=== PATIENT | female | born 1975 | race Caucasian/White ===

== ENCOUNTER 2017-03-29 04:52 | Day surgery (SDC) | payer MEDICAID ==
[~2017-03-29 04:52] MED LIST: Cyanocobalamin (Vitamin B12) 1,000 MCG/ML SDV IM ONE; Glycopyrrolate 0.2 MG/ML 2 ML SYRINGE IVPUSH ONE; Lactated Ringers 1,000 ML IV ONE; MVI, Adult with Vitamin K 10 ML, Thiamine 200 MG, Chromium/Copper/Mang/Selen/Zn 1 ML in... IV ONE
[2017-03-29] MEDS ORDERED: Dextrose 5%-Lactated Ringers 1,000 ML IV SCH (05:30)
[2017-03-29] MEDS ORDERED: fentaNYL 100 MCG/2 ML SDV ONE (07:05)
[2017-03-29] MEDS ORDERED: Midazolam 1 MG/ML 2 ML SDV ONE (07:05)
[2017-03-29] MEDS ORDERED: Propofol 200 MG/20 ML SDV ONE (07:05)
[2017-03-29] MEDS ORDERED: Glycopyrrolate 0.2 MG/ML 2 ML SYRINGE IVPUSH ONE (07:15)
[2017-03-29 09:05] VITALS: BP 91/50
--- NOTE | 2017-04-08 07:46 | OR ---
DATE OF PROCEDURE: 03/29/2017 PREOPERATIVE DIAGNOSIS: Nausea and frequent emesis, status post Boris-en-Y gastric bypass. POSTOPERATIVE DIAGNOSIS: Nausea and frequent emesis with retained food associated with elongated blind end of the Boris limb and probable stricturing of the origin of the Boris limb off the gastrojejunostomy. OPERATIVE PROCEDURE: Upper GI endoscopy with biopsies of gastric pouch for CLOtest. ANESTHESIA: IV sedation. INDICATION FOR PROCEDURE: This 41-year-old, status post previous Boris-en-Y gastric bypass presenting with some ongoing nausea as well as emesis of often recently ingested food. Transnasal upper GI endoscopy with biopsies and dilation is indicated. Potential risks including bleeding and perforation were discussed, and the patient wishes to proceed. DETAILS OF PROCEDURE: The patient was taken to the operating room and placed in a left lateral decubitus position. IV sedation was administered after which the upper GI endoscope was passed orally through the esophagus and into the gastric pouch into the area of the gastrojejunostomy. The patient was noted to have some retained solid food within the distal esophagus, gastric pouch, and a quite large amount of this within the elongated blind end of the Boris limb. As one passed into the main course of the Boris limb just immediately distal anastomosis, this appears quite angulated narrowed. It appeared to be this is likely somewhat strictured as it was approaching the area of the transverse mesocolon. This appeared to be the primary site of the problem and initially as the scope would be passed through that area, but upon its scoping and pull back, the tissue recoiled. This would indicate this was probably not a dilated bowel situation as the external pressure is unlikely to be fractured by a dilator. Biopsies were obtained from the gastric pouch, sent for CLOtest for H. pylori and the procedure then concluded. The patient was taken to the recovery room in satisfactory condition. I discussed with the patient and . This appeared to be a case where we will need to proceed with revision of the area around the gastrojejunostomy with resection along the lines and probably redo of the entire gastrojejunostomy based on the findings. This may involve a division of the esophageal level esophagogastrectomy versus proximal gastrectomy with Boris-en-Y reconstruction in either case. This will need to be done as an open approach as the original procedure done was retrocolic Boris limb which would make laparoscopic approach quite unsafe. The plan will be to proceed with this surgical intervention next Saturday. Aakash Brothers MD /[id number]
== END 2017-03-29 09:15 | disposition home or self-care (01) ==
LOC: JP.SDS 04:52
PROVIDERS: ATTEND Surgery
DX: T18.128A Food in esophagus causing other injury, initial encounter (principal); Z98.84 Bariatric surgery status; Z88.0 Allergy status to penicillin; Z88.1 Allergy status to other antibiotic agents; Z88.2 Allergy status to sulfonamides; Z88.8 Allergy status to other drugs, medicaments and biological substances
CPT/HCPCS: 43239; 87081; J2250; J2704; J3010; J7042

== ENCOUNTER 2017-04-02 08:00 | Inpatient (IN) | payer MEDICAID ==
[2017-04-02] MEDS ORDERED: Acetaminophen 500 MG Tab PO ONE (09:00)
[2017-04-02] MEDS ORDERED: Scopolamine 1.5 MG Transdermal Patch TRDERM SCH (09:00)
[2017-04-02] MEDS ORDERED: Gabapentin 300 MG Cap PO ONE (09:00)
[2017-04-02] MEDS ORDERED: Celecoxib 200 MG Cap PO ONE (09:00)
[2017-04-02] MEDS ORDERED: Albuterol/Ipratropium 3.0-0.5 MG/3 ML Neb Soln NEB ONE (09:00)
[2017-04-02] MEDS ORDERED: Dextrose 5%-Lactated Ringers 1,000 ML IV SCH ×2 (09:00→15:45)
[2017-04-02] MEDS ORDERED: Ondansetron 4 MG/2 ML SDV ONE (09:48)
[2017-04-02] MEDS ORDERED: Dexamethasone 4 MG/ML SDV ONE (09:48)
[2017-04-02] MEDS ORDERED: Succinylcholine/Normal Saline 200 MG/10 ML Syringe ONE (09:48)
[2017-04-02] MEDS ORDERED: Propofol 200 MG/20 ML SDV ONE (09:48)
[2017-04-02] MEDS ORDERED: Neostigmine Methylsulfate 1 MG/ML 5 ML Syringe ONE (09:48)
[2017-04-02] MEDS ORDERED: fentaNYL 250 MCG/5 ML SDV ONE (09:48)
[2017-04-02] MEDS ORDERED: Rocuronium 50 MG/5 ML Vial ONE ×2 (09:48→12:18)
[2017-04-02] MEDS ORDERED: Lidocaine 2% 100 MG/5 ML Syringe IVPUSH ONE (10:30)
[2017-04-02] MEDS ORDERED: Ropivacaine 45 ML, Dexamethasone 8 MG, EPINEPHrine 0.4 MG, Sodium Chloride 0.9% 32.6 ML NERVRT ONE ×4 (10:30)
[2017-04-02] MEDS ORDERED: Ketamine 500 MG/5 ML MDV IV SCH (10:30)
[2017-04-02] MEDS ORDERED: Doxycycline 100 MG Vial ONE ×2 (12:08→12:10)
[2017-04-02] MEDS: Clindamycin Phosphate 900 MG in Sodium Chloride 0.9% 100 ML IV ONE ×2 (12:13→17:18)
[2017-04-02] MEDS ORDERED: fentaNYL 100 MCG/2 ML SDV ONE (14:38)
[2017-04-02] MEDS ORDERED: HYDROmorphone/Normal Saline 15 MG/30 ML PCA IV PRN (15:04)
[2017-04-02] MEDS ORDERED: Naloxone 0.4 MG/ML SDV IVPUSH PRN (15:04)
[2017-04-02] MEDS ORDERED: Naloxone 0.4 MG/ML SDV ONE (15:11)
[2017-04-02] MEDS ORDERED: Doxycycline 100 MG in Sodium Chloride 0.9% 100 ML IV ONE (15:20)
[2017-04-02] MEDS ORDERED: Metoclopramide 10 MG/2 ML SDV IV PRN (16:50)
[2017-04-02] MEDS ORDERED: hydrOXYzine HCl 50 MG/ML SDV IM PRN (17:00)
[2017-04-02] MEDS ORDERED: Labetalol 20 MG/4 ML Syringe IVPUSH PRN (17:00)
[2017-04-02] MEDS ORDERED: Ondansetron 4 MG/2 ML SDV IVPUSH PRN (17:00)
[2017-04-02] MEDS ORDERED: SCOPOLAMINE PATCH ASK TOP SCH (17:00)
[2017-04-02] MEDS: Lidocaine 0.4%/D5W 2 GM/500 ML BAG IV SCH (17:19)
[2017-04-02] MEDS: Acetaminophen Soln 650 MG/20.3 ML UD Cup PO SCH (17:20)
[2017-04-02] MEDS: MVI, Adult with Vitamin K 10 ML, Thiamine 200 MG, Chromium/Copper/Mang/Selen/Zn 1 ML in... IV SCH ×4 (17:39)
[2017-04-02] MEDS: Pantoprazole 40 MG Vial IVPUSH SCH (17:39)
[2017-04-02] MEDS ORDERED: LORazepam 1 MG Tab PO PRN (19:32)
[2017-04-02] MEDS: Heparin Sodium 5,000 Units/ML Vial SUBCUT SCH (21:09)
[2017-04-02] MEDS: Gabapentin 300 MG Cap PO SCH (21:10)
[2017-04-03] MEDS: Acetaminophen Soln 650 MG/20.3 ML UD Cup PO SCH ×4 (00:06→16:17)
[2017-04-03] MEDS: Doxycycline 100 MG in Sodium Chloride 0.9% 100 ML IV SCH ×2 (03:25→15:15)
[2017-04-03] MEDS: Lidocaine 0.4%/D5W 2 GM/500 ML BAG IV SCH (03:26)
[2017-04-03] MEDS ORDERED: Iohexol 647 MG/ML 50 ML SDV PO STA (04:17)
[2017-04-03] MEDS ORDERED: Dextrose 5%-Lactated Ringers 1,000 ML IV SCH (07:24)
[2017-04-03] MEDS ORDERED: LORazepam 1 MG Tab PO PRN (07:24)
[2017-04-03] MEDS ORDERED: Albuterol 0.083% 2.5 MG/3 ML Neb Soln INH PRN (07:24)
[2017-04-03] MEDS ORDERED: EPINEPHrine 1:10,000 1 MG/10 ML Syringe IM SCH (07:30)
[2017-04-03] MEDS: Celecoxib 200 MG Cap PO SCH (07:35)
[2017-04-03] MEDS: Heparin Sodium 5,000 Units/ML Vial SUBCUT SCH ×2 (07:35→20:40)
--- NOTE | 2017-04-03 08:24 | PN ---
DATE OF SERVICE: 04/03/2017 SUBJECTIVE: Kiki is postop day #1. She had some confusion during the night. Lidocaine was discontinued. Her vital signs have been stable. Pain has been controlled. REVIEW OF SYSTEMS: Remainder of review of systems negative for any pertinent positives and negatives. OBJECTIVE: GENERAL: Kiki Sam is a 41-year-old female. She appears to be alert this morning and comfortable, sitting up in bed. VITAL SIGNS: TPR 97.8, 83, 20, blood pressure 110/55. HEENT: Negative. NECK: Supple. HEART: Regular rate and rhythm. LUNGS: Clear. ABDOMEN: Dressings, dry and intact. Abdominal binder is on. EXTREMITIES: Without peripheral edema. ASSESSMENT: Exploratory laparotomy with lysis of extensive adhesions, and esophagogastrectomy with Boris-en-Y at the esophageal junction, small-bowel resection, and resection of mesenteric peritoneal nodule for partial small bowel obstruction adjacent to the gastrojejunostomy with inflammation requiring resection at the distal esophageal junction with Boris-en-Y, AJ small-bowel resection, and resection of mesenteric peritoneal nodule. Date of surgery 04/02/2017. PLAN: 1. Step-2 gastric bypass diet without cereal. Decrease IV to 100 mL per hour. 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 Dilaudid 2 mg one to two every 4 hours p.r.n. pain. Dressing off. May shower. 2. Good pulmonary toilet. 3. We will evaluate p.r.n. or in a.m. Halle Donahue PA-C /[id number]
[2017-04-03] MEDS: Docusate Sodium 100 MG Cap PO SCH (08:40)
[2017-04-03] MEDS: Cyclobenzaprine 10 MG Tab PO SCH ×3 (08:40→20:41)
[2017-04-03] MEDS: Gabapentin 300 MG Cap PO SCH ×3 (08:41→20:41)
[2017-04-03] MEDS: SCOPOLAMINE PATCH CHECK TOP SCH (08:41)
[2017-04-03] MEDS: Oxybutynin 5 MG Tab PO SCH ×3 (08:42→20:41)
[2017-04-03] MEDS: Cetirizine 10 MG Tab PO SCH (08:43)
[2017-04-03] MEDS: Clopidogrel 75 MG Tab PO SCH (08:43)
[2017-04-03] MEDS: Pindolol 10 MG Tab PO SCH ×2 (08:45→20:42)
[2017-04-03] MEDS: Topiramate 100 MG Tab PO SCH ×3 (08:52→20:44)
[2017-04-03] MEDS: Montelukast 10 MG Tab PO SCH (08:52)
[2017-04-03] MEDS: Prazosin 1 MG Cap PO SCH (08:52)
[2017-04-03] MEDS: HYDROmorphone 2 MG Tab PO PRN ×3 (10:03→18:54)
--- NOTE | 2017-04-03 12:23 | CR ---
Contrast within small bowel loops. No gross evidence for leakage.
[2017-04-03] MEDS: diphenhydrAMINE 50 MG/ML SDV IV PRN ×2 (16:11→20:58)
[2017-04-03] MEDS: MVI, Adult with Vitamin K 10 ML, Thiamine 200 MG, Chromium/Copper/Mang/Selen/Zn 1 ML in... IV SCH ×4 (16:16)
[2017-04-03] MEDS: Pantoprazole 40 MG Vial IVPUSH SCH (17:31)
[2017-04-03] MEDS: Doxepin 25 MG Cap PO SCH (20:44)
[2017-04-03] MEDS ORDERED: Tamsulosin 0.4 MG Cap.ER PO ONE (21:00)
[2017-04-04] MEDS: Acetaminophen Soln 650 MG/20.3 ML UD Cup PO SCH ×6 (00:22→22:43)
[2017-04-04] MEDS: HYDROmorphone 2 MG Tab PO PRN ×3 (04:22→20:16)
[2017-04-04] MEDS: Celecoxib 200 MG Cap PO SCH (07:38)
[2017-04-04] MEDS: Heparin Sodium 5,000 Units/ML Vial SUBCUT SCH ×2 (07:39→20:30)
--- NOTE | 2017-04-04 08:01 | PN ---
DATE OF SERVICE: 04/04/2017 SUBJECTIVE: Kiki has had difficulty urinating. Her Morlaes was put back in. Last night, she had 1580 out. Her total oral intake was 2500. REBECCA drains have put out 5 and 40 mL respectively. Kiki has difficulty waking up during the night. Nursing staff and family confirms that once she takes her medications at night, she is very difficult to wake up. Kiki states her doctor is aware of this and she does not want to change her medications. Pain is controlled, activity is good. REVIEW OF SYSTEMS: Remainder of review of systems is negative for any pertinent positives and negatives. OBJECTIVE: GENERAL: Kiki Sam is a 41-year-old female. She is quite sleepy. Speech is slightly slurred. VITAL SIGNS: TPR is 96.7, 76, 16, blood pressure 90/51. HEENT: Negative. NECK: Supple. HEART: Regular rate and rhythm. LUNGS: Clear. ABDOMEN: Aquacel dressing is on. There are 2 REBECCA drains and they have drained 5 and 40 mL of a light red drainage respectively. EXTREMITIES: SCDs are on and no peripheral edema. ASSESSMENT: Exploratory laparotomy with lysis of extensive adhesions and esophagogastrectomy with Boris-en-Y reconstruction at the esophageal junction, small bowel resection, and resection of mesenteric peritoneal nodule for partial small bowel obstruction adjacent to the gastrojejunostomy with inflammation requiring resection of the distal esophageal junction with Boris-en-Y small bowel resection, and resection of mesenteric peritoneal nodule. Date of surgery 04/02/2017. PLAN: 1. Hospitalist referral put in for Dr. Toan Carson to evaluate. Psychiatric medication due to extreme sleepiness/sedation at bedtime. 2. Flomax 0.4 mg now, then Flomax 0.4 b.i.d. p.o. 3. Good pulmonary toilet encouraged. 4. To remove Morales catheter at 11:30 a.m. today. 5. We will evaluate p.r.n. or in a.m. Halle Donahue PA-C /[id number]
[2017-04-04] MEDS: Pindolol 10 MG Tab PO SCH ×2 (08:21→20:33)
[2017-04-04] MEDS: Oxybutynin 5 MG Tab PO SCH ×3 (08:22→20:32)
[2017-04-04] MEDS: Docusate Sodium 100 MG Cap PO SCH (08:22)
[2017-04-04] MEDS: Cetirizine 10 MG Tab PO SCH (08:22)
[2017-04-04] MEDS: Cyclobenzaprine 10 MG Tab PO SCH ×3 (08:22→20:32)
[2017-04-04] MEDS: Montelukast 10 MG Tab PO SCH (08:22)
[2017-04-04] MEDS: Prazosin 1 MG Cap PO SCH (08:22)
[2017-04-04] MEDS: Gabapentin 300 MG Cap PO SCH ×3 (08:22→20:32)
[2017-04-04] MEDS: Clopidogrel 75 MG Tab PO SCH (08:22)
[2017-04-04] MEDS: SCOPOLAMINE PATCH CHECK TOP SCH (08:23)
[2017-04-04] MEDS: Tamsulosin 0.4 MG Cap.ER PO SCH ×2 (08:26→17:02)
[2017-04-04] MEDS ORDERED: Tamsulosin 0.4 MG Cap.ER PO SCH (09:00)
[2017-04-04] MEDS ORDERED: Cyanocobalamin (Vitamin B12) 1,000 MCG/ML SDV IM ONE (09:00)
[2017-04-04] MEDS: Vilazodone 20 MG Tab PO SCH (10:08)
--- NOTE | 2017-04-04 16:50 | PCM.CONS ---
H&P History of Present Illness - General Date of Service: 04/04/17 Admit Problem/Dx: Admission Diagnosis/Problem Admission Diagnosis/Problem Small bowel obstruction Source of Information: Patient, Provider, RN Notes Reviewed History Limitations: Reports: No Limitations - History of Present Illness Initial Comments - Free Text/Narative: This patient is a 41-year-old woman who I been asked to see by Dr. Brothers for further suggestions concerning evaluation and management of psychiatric medications. She was hospitalized at this facility for management of partial small bowel obstruction. She did receive anesthesia and was noted to take significant period of time to recover from the anesthesia. She takes several psychiatric medications at night and reports that she's been taking his medications over the past 6 months. She denies any new medications or changes in dosing recently. Family has noted that she sleeps very hard for several hours after taking the medication even to the point where she's very difficult to wake up. She feels that her psychiatric illnesses well controlled on current medical therapy. While monitored in the hospital she is been hemodynamically stable at night with adequate oxygenation no evidence of significant respiratory compromise. Abdomen Pain Score (Numeric/FACES): 5 - Related Data Allergies/Adverse Reactions: Allergies Allergy/AdvReac Type Severity Reaction Status Date / Time aspirin Allergy Cannot Verified 04/02/17 09:18 Remember cefazolin Allergy Cannot Verified 04/02/17 09:18 Remember cefoxitin Allergy Cannot Verified 04/02/17 09:18 Remember ciprofloxacin Allergy Cannot Verified 04/02/17 09:18 Remember diphtheria, pertussis, Allergy Cannot Verified 04/02/17 09:18 tetanus vacc Remember doxycycline Allergy Hives Verified 04/03/17 17:30 levofloxacin [From Levaquin] Allergy Cannot Verified 04/02/17 09:18 Remember Penicillins Allergy Cannot Verified 04/02/17 09:18 Remember propoxyphene Allergy Cannot Verified 04/02/17 09:18 Remember Sulfa (Sulfonamide Allergy Cannot Verified 04/02/17 09:18 Antibiotics) Remember sulfamethoxazole Allergy Cannot Verified 04/02/17 09:18 Remember trimethoprim Allergy Cannot Verified 03/29/17 05:41 Remember Home Medications: Home Meds Albuterol [IJD: Ventolin HFA] 2 puff INH Q4H PRN 03/07/17 [History] Albuterol [Proventil Neb Soln] 2.5 mg INH Q4H PRN 03/07/17 [History] Albuterol/Ipratropium [DuoNeb 3.0-0.5 MG/3 ML] 3 ml INH Q4H PRN 03/07/17 [ History] Calcium Carbonate/Vitamin D3 [Calcium 500 + Vit D Caplet] 1 tab PO DAILY [History] Cholecalciferol (Vitamin D3) [Vitamin D3] 1,000 units PO DAILY 03/07/17 [History ] Cyclobenzaprine HCl 10 mg PO TID 03/07/17 [History] Doxepin HCl 150 mg PO BEDTIME 03/07/17 [History] Ferrous Gluconate 324 mg PO DAILY 03/07/17 [History] Gabapentin [Neurontin] 800 mg PO TID 03/07/17 [History] Magnesium Oxide 1 tab PO TID 03/07/17 [History] Montelukast Sodium [Singulair] 10 mg PO DAILY 03/07/17 [History] Pantoprazole Sodium [Protonix] 40 mg PO DAILY 03/07/17 [History] Pindolol 5 mg PO BEDTIME 03/07/17 [History] Pindolol 10 mg PO DAILY 03/07/17 [History] Prazosin [Minpress] 1 mg PO DAILY 03/07/17 [History] QUEtiapine Fumarate [Seroquel] 600 mg PO DAILY 03/07/17 [History] Topiramate [Topamax] 400 mg PO DAILY 03/07/17 [History] Vilazodone [Viibryd] 60 mg PO DAILY 03/07/17 [History] Cetirizine [ZyrTEC] 10 mg PO DAILY 03/27/17 [History] Cholecalciferol (Vitamin D3) [Vitamin D] 50,000 units PO .M.W.F 03/27/17 [ History] Clopidogrel [Plavix] 75 mg PO DAILY 03/27/17 [History] EPINEPHrine [Epinephrine] 1 dose IM ASDIRECTED 03/27/17 [History] Multivitamin with Minerals [Multiple Vitamin] 1 tab PO DAILY 03/27/17 [History] Oxybutynin 5 mg PO TID 03/27/17 [History] Ranitidine [Zantac] 150 mg PO BID 03/27/17 [History] SUMAtriptan 100 mg PO DAILY PRN 03/27/17 [History] Sucralfate 10 ml PO QID 03/27/17 [History] diphenhydrAMINE [Benadryl] 25 mg PO ASDIRECTED PRN 03/27/17 [History] hydrOXYzine HCl [hydrOXYzine] 25 mg PO TID PRN 03/27/17 [History] Cyanocobalamin (Vitamin B-12) [Vitamin B-12] 1,000 mcg PO .MONTHLY 03/29/17 [ History] Cyanocobalamin (Vitamin B-12) [Vitamin B-12] 1,000 mcg SL DAILY 03/29/17 [ History] Docusate Sodium [Colace] 100 mg PO DAILY 03/29/17 [History] Hydrocodone/Acetaminophen [[place] 7.5-325 Tablet] 1 - 2 tab PO Q4H PRN 03/29/17 [ History] LORazepam 1 mg PO Q6H PRN 03/29/17 [History] Multivits,Ca,Minerals/Iron/FA [Women's Daily Formula Caplet] 1 tab PO DAILY [History] Past Medical History HEENT History: Reports: Impaired Vision Other HEENT History: wears glasses Cardiovascular History: Reports: Other (See Below) Other Cardiovascular History: "vagal nerve disease" Respiratory History: Reports: Asthma Genitourinary History: Reports: Renal Calculus 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: Musculoskeletal History: Reports: Arthritis, Back Pain, Chronic Neurological History: Reports: Migraines Psychiatric History: Reports: Anxiety, Depression Endocrine/Metabolic History: Reports: Obesity/BMI 30+ Hematologic History: Reports: Blood Transfusion(s) - Infectious Disease History Infectious Disease History: Reports: Chicken Pox - Past Surgical History HEENT Surgical History: Reports: Oral Surgery Other HEENT Surgeries/Procedures: all teeth pulled Cardiovascular Surgical History: Reports: None GI Surgical History: Reports: Appendectomy, Bariatric Procedure, Cholecystectomy , EGD, Small Bowel Female Surgical History: Reports: Section Neurological Surgical History: Reports: Spinal Fusion Social & Family History - Family History Family Medical History: Noncontributory - Tobacco Use Smoking Status *Q: Former Smoker Years of Tobacco use: 20 Used Tobacco, but Quit: Yes Month Tobacco Last Used: years Second Hand Smoke Exposure: No - Caffeine Use Caffeine Use: Reports: Coffee, Tea - Recreational Drug Use Recreational Drug Use: No H&P Review of Systems - Review of Systems: Review Of Systems: See Below Pulmonary: Reports: No Symptoms Cardiovascular: Reports: No Symptoms Gastrointestinal: Reports: Abdominal Pain. Denies: Anorexia, Difficulty Swallowing, Distension, Nausea, Vomiting Genitourinary: Reports: No Symptoms Psychiatric: Reports: No Symptoms Exam - Exam Exam: See Below - Vital Signs Vital Signs: Last Vital Signs Temp 96.8 F 04/04/17 14:35 Pulse 77 04/04/17 14:56 Resp 16 04/04/17 14:56 BP 91/48 L 04/04/17 14:56 Pulse Ox 96 04/04/17 14:56 Weight: 194 lb - Exam Neck: Supple, Trachea Midline, +2 Carotid Pulse wo Bruit Lungs: Clear to Auscultation, Normal Respiratory Effort Cardiovascular: Regular Rate, Regular Rhythm, Normal S1, Normal S2. No: Systolic Murmur, Diastolic Murmur Abdomen: Soft, Tenderness. No: Organomegaly, Peritoneal Signs, Distention, Guarding, Rigidity Extremities: 3, Normal Inspection, 10 - Patient Data Result Diagrams: 04/02/17 08:25 04/02/17 08:25 Consult PN Assessment/Plan Problem List Initiated/Reviewed/Updated: Yes Plan: ASSESSMENT AND RECOMMENDATIONS PSYCHIATRIC MEDICATIONS-concerned about medications and potential oversedation. Patient has been on these medications now for some time and reports that her mental illness is well controlled with current therapy. She does sleep very hard after taking the medications but during hospitalization is been noted to be hemodynamically stable with no evidence of significant respiratory compromise. -No changes in medication at this time -Out Patient followup with her mental health provider Requesting Provider: TULIO Date Consult Requested: 04/04/17 Reason for Consult: Review psychiatric medication Patient History Reviewed: Yes
[2017-04-04] MEDS: Doxepin 25 MG Cap PO SCH (20:33)
[2017-04-04] MEDS: Topiramate 100 MG Tab PO SCH (20:34)
[2017-04-05] MEDS: Acetaminophen Soln 650 MG/20.3 ML UD Cup PO SCH (06:01)
[2017-04-05 07:15] VITALS: BP 91/52
[2017-04-05] MEDS: Tamsulosin 0.4 MG Cap.ER PO SCH (07:51)
[2017-04-05] MEDS: Celecoxib 200 MG Cap PO SCH (07:52)
[2017-04-05] MEDS: SCOPOLAMINE PATCH CHECK TOP SCH (08:18)
[2017-04-05] MEDS: Pindolol 10 MG Tab PO SCH (08:26)
[2017-04-05] MEDS: Vilazodone 20 MG Tab PO SCH (08:26)
[2017-04-05] MEDS: Heparin Sodium 5,000 Units/ML Vial SUBCUT SCH (08:26)
[2017-04-05] MEDS: Docusate Sodium 100 MG Cap PO SCH (08:28)
[2017-04-05] MEDS: Prazosin 1 MG Cap PO SCH ×2 (08:28→08:31)
[2017-04-05] MEDS: Cyclobenzaprine 10 MG Tab PO SCH (08:28)
[2017-04-05] MEDS: Oxybutynin 5 MG Tab PO SCH (08:28)
[2017-04-05] MEDS: Gabapentin 300 MG Cap PO SCH (08:28)
[2017-04-05] MEDS: Cetirizine 10 MG Tab PO SCH (08:29)
[2017-04-05] MEDS: Clopidogrel 75 MG Tab PO SCH (08:29)
[2017-04-05] MEDS: Montelukast 10 MG Tab PO SCH (08:29)
--- NOTE | 2017-04-05 15:11 | DISCH ---
ADMISSION DIAGNOSES: 1. Partial small bowel obstruction. 2. Boris-en-Y gastric bypass surgery. 3. B12 deficiency. 4. Malabsorption.. 5. Vitamin D deficiency. 6. Dysphagia.. 7. Epigastric pain. 8. Bipolar I disorder, uncomplicated. 9. Asthma. 10.Intractable migraine with status migrainosus, unspecified type. 11.Depression. DISCHARGE DIAGNOSES: 1. Exploratory laparotomy with lysis of extensive adhesions and esophagogastrectomy with Boris-en-Y reconstruction at the esophageal junction. 2. Small bowel resection and resection of the mesenteric peritoneal nodule for partial small bowel obstruction adjacent to the gastrojejunostomy with inflammation requiring resection of the distal esophageal junction with Boris-en-Y and small bowel resection and resection of her nodule, date of surgery 04/02/2017. HISTORY: Kiki Sam is a 41-year-old female with postprandial abdominal pain and bloating with weight regain. After preoperative evaluation and discussion of possible risks and possible complications, she wished to proceed with surgical procedure. HOSPITAL COURSE: Kiki had her surgery on 04/02/2017. She had no operative complications. On postop day #1, her upper GI was normal and she was started on a step 2 gastric bypass diet without cereal. She received dietary education. Her VELVET STEAMER was changed to oral pain medication. She had no other complications with the exception of some urinary retention. On postop day #1, her Morales catheter was removed and she was voiding without difficulty since that time. Internal Medicine consult was obtained to evaluate her psychiatric medications. Kiki was very sleepy, she is unable to be woke up after she takes her bedtime medications. Nursing staff, mom, and were quite concerned. Dr. Toan Carson saw the patient. He did not adjust her psych medication but referred her to see Dr. Jerome at [facility] to evaluate these medications. On postop day #3, Kiki was educated, she verbalized her understanding, and she was ready to be discharged to home. PHYSICAL EXAMINATION: GENERAL: Kiki Sam is a 41-year-old female. VITAL SIGNS: Height 5 feet 3 inches, weight is 194 pounds, and BMI 34.4. TPR is 98.2, 78, and 18. Blood pressure 91/52. HEENT: Negative. NECK: Supple. HEART: Regular rate and rhythm. LUNGS: Clear. ABDOMEN: Aquacel dressing was removed with chata in place. She has 2 REBECCA drains. The peripheral REBECCA drain is removed and a 4 x 4 was placed over the previous site. We will leave the midline REBECCA drain. EXTREMITIES: Without peripheral edema. DISPOSITION: Discharged to home. CONDITION: Stable and improving. FOLLOWUP APPOINTMENT: Halle Donahue PA-C, on 04/12/2017. HOME MEDICATIONS: 1. Dilaudid 2 mg 1 to 2 every 4 hours p.r.n. pain #30, she is not to take that with her hydrocodone. 2. Celebrex 200 mg oral daily for 14 days and stop. 3. Multivitamin chewable twice daily. 4. She is to resume taking her albuterol inhaler 2 puffs every 4 hours, Proventil nebulizer solution as directed, and her duo nebs as directed p.r.n. 5. Zyrtec 10 mg oral daily. 6. Vitamin B12 1000 mcg sublingual daily. She can continue her B12 1000 IM monthly. 7. Cyclobenzaprine 10 mg oral 3 times a day. 8. Colace 100 mg oral daily. 9. Doxepin 150 mg oral at bedtime. 10.Epinephrine 1 dose intramuscular as needed. 11.Neurontin 800 mg 3 times a day. 12.Lorazepam 1 mg every 6 hours p.r.n. anxiety. 13.Singulair 10 mg oral daily. 14.Oxybutynin 5 mg oral 3 times a day. 15.Protonix 40 mg oral daily. 16.Pindolol 5 mg oral twice daily. 17.Minipress 1 mg oral daily. 18.Seroquel 600 mg oral at bedtime. 19.Zantac 150 mg oral twice daily. 20.Sumatriptan 100 mg oral daily. 21.Sucralfate 10 mL oral 4 times a day. 22.Topamax 400 mg oral daily. 23.Viibryd 60 mg oral daily. 24.Benadryl 25 mg as directed. 25.Hydroxyzine 25 mg oral 3 times a day. 26.She is to stop all of her vitamins with exception of B12 and multivitamin. DIET: After discharge, step-2 gastric bypass diet without cereals. Drink 8 to 10 glasses of water a day. ACTIVITY: No lifting greater than 10 pounds for 2 weeks[address]riving, do not drive on pain medication. May shower. Notify provider of fever, increased pain, nausea, or vomiting. Keep the site clean and dry. Use incentive spirometer 10 times every hour while awake.
--- NOTE | 2017-04-15 12:40 | OR ---
DATE OF PROCEDURE: 04/02/2017 PREOPERATIVE DIAGNOSES: Partial obstruction adjacent to the gastrojejunostomy. The patient has a previous gastric bypass. POSTOPERATIVE DIAGNOSES: 1. Partial small bowel obstruction adjacent to the gastrojejunostomy with marked inflammation, requiring resection at the level of distal esophagus with Boris-en-Y esophagojejunostomy. 2. Foreshortened small bowel requiring additional small bowel resection to facilitate the GI tract reconstruction. 3. Mesenteric peritoneal nodule. OPERATIVE PROCEDURE: Exploratory laparotomy with bowel with: 1. Lysis of adhesions and a. Esophagogastrectomy with Boris-en-Y esophagojejunostomy (61835). b. Small bowel resection (31782). c. Resection of the mesenteric peritoneal nodule (41166). ANESTHESIA: General. ASSOCIATE PRINCIPAL: Belkys Adame PA-C. INDICATION FOR PROCEDURE: This is a 41-year-old, status post previous Boris-en-Y gastric bypass which was performed with a retrocolic approach. She now presents with marked problems with regurgitation of food and dysphagia and was noted to have an area of a high- grade partial obstruction at the level of the small bowel adjacent to the gastrojejunostomy. The plan is to proceed with a revision of this area, this will need to be done with an open approach. Potential risks of the procedure including bleeding, infection, injury to underlying viscera, leaks from various GI tract closures and such were all reviewed, and the patient wishes to proceed. DETAILS OF THE PROCEDURE: The patient was taken to the operating room and placed in a supine position. After general endotracheal anesthesia was induced, a bilateral transversus abdominis plane blocks were placed with ultrasound guidance. Following this, the abdomen was prepped and draped, and a Morales catheter was inserted. The previous upper midline incision was then reused and carried down through the skin and subcutaneous tissue, extensive adhesions were undertaken. Once these were freed up, the patient was noted to have a marked inflammatory response around the gastrojejunostomy. The only clean plane of the dissection appeared to be above this in the level of the distal esophagus. This was then divided and the underlying esophagogastric gastrectomy was then completed with vascular and mesenteric loads dividing the vascular attachments to the specimen, which consisted of the distal esophagus, and previous gastric pouch along with the Boris limb. The Boris limb was divided with a juarez load and that specimen was then delivered from the field. The Boris limb was fairly foreshortened, and to facilitate mobilization of this up to the divided esophagus, a segmental small-bowel resection and a portion of the Boris limb was accomplished. That segment of small bowel was divided proximally, distally, and the underlying mesentery and all were divided with the GI tract chata. The small bowel anatomy was then reconstructed with 2 internal firings of the MARJORIE juarez load, common opening was closed transversely with the purple load and the angles of the anastomosis and mesenteric defect approximated with some 3-0 Vicryl stitch and fibrin sealant. During the course of dissection, the patient was noted to have a roughly 6 mm peritoneal nodule of uncertain nature, which was excised and delivered from the field. At this point, the Boris limb came up to the divided esophagus satisfactory and over 25 mm EEA stapler was attached to a [place] sump tube and brought down through the mouth and taken out through the end of the esophagus allowing the anvil to be able to be brought down through the esophagus as well. The divided end of the Boris limb was then opened and main body EEA stapler was passed several centimeters in the lumen of small bowel brought up the anvil and united with it, thus creating the esophagojejunostomy. The Boris limb was at this time noted to be around 120 cm. The esophagojejunostomy was then reinforced with 3-0 Vicryl seromuscular stitch along with fibrin sealant. No problems were noted. Two Ousmane-Monet drains were then placed through stab wounds lateral to the incision and the incision was then closed with some 2-0 Vicryl stitch at the fascia level. The subcutaneous tissue was then drained with a 10 round Ousmane-Monet drain and the skin closed with chata. Dressing was applied. The patient was taken to the recovery room in satisfactory condition. There were no other complications noted. Aakash Brothers MD /[id number]
== END 2017-04-05 09:35 | disposition home or self-care (01) | DRG 327 ==
LOC: JP.MS 08:00 → JP.SDS 08:00 → EDSTATUS 09:15 → JP.2SS 16:34
PROVIDERS: ADMIT Surgery; ATTEND Surgery
PROC: 0DNW0ZZ Release Peritoneum, Open Approach (ICD-10-PCS; principal; 2017-04-02)
PROC: 0DB80ZX Excision of Small Intestine, Open Approach, Diagnostic (ICD-10-PCS; principal; 2017-04-02)
PROC: 0DB60ZZ Excision of Stomach, Open Approach (ICD-10-PCS; principal; 2017-04-02)
PROC: 3E0T3BZ Introduction of Anesthetic Agent into Peripheral Nerves and Plexi, Percutaneous Approach (ICD-10-PCS; principal; 2017-04-02)
PROC: 0DB30ZZ Excision of Lower Esophagus, Open Approach (ICD-10-PCS; principal; 2017-04-02)
PROC: 0DBW0ZZ Excision of Peritoneum, Open Approach (ICD-10-PCS; principal; 2017-04-02)
DX: K56.5 Intestinal adhesions [bands] with obstruction (postinfection) (principal); K91.2 Postsurgical malabsorption, not elsewhere classified; K66.8 Other specified disorders of peritoneum; E53.8 Deficiency of other specified B group vitamins; Z98.84 Bariatric surgery status; Z98.0 Intestinal bypass and anastomosis status; E55.9 Vitamin D deficiency, unspecified; R13.10 Dysphagia, unspecified; R10.13 Epigastric pain; F31.9 Bipolar disorder, unspecified; J45.909 Unspecified asthma, uncomplicated; G89.29 Other chronic pain; G43.911 Migraine, unspecified, intractable, with status migrainosus; Z98.1 Arthrodesis status; M54.9 Dorsalgia, unspecified; M19.90 Unspecified osteoarthritis, unspecified site; H54.7 Unspecified visual loss; F41.9 Anxiety disorder, unspecified; Z87.891 Personal history of nicotine dependence; Z88.6 Allergy status to analgesic agent; Z88.1 Allergy status to other antibiotic agents; Z88.0 Allergy status to penicillin; Z88.2 Allergy status to sulfonamides; Z88.7 Allergy status to serum and vaccine; Z88.8 Allergy status to other drugs, medicaments and biological substances; R33.8 Other retention of urine; K20.9 Esophagitis, unspecified; K52.9 Noninfective gastroenteritis and colitis, unspecified
CPT/HCPCS: 36415; 74240; 74240-26; 80053; 83735; 84100; 85027; 88304; 88307; 88341; 88342; A9270-GY; C9113; J0171; J1100; J1170; J1200; J1644; J2001; J2310; J2405; J2704; J2795; J3010; J3410; J3411; J3420; J7030; J7042; J7050; J7620; Q9967; S0077

== ENCOUNTER 2017-05-03 07:51 | Day surgery (SDC) | payer MEDICAID ==
[2017-05-03] MEDS ORDERED: Lactated Ringers 1,000 ML IV SCH (08:30)
[2017-05-03] MEDS ORDERED: Midazolam 1 MG/ML 2 ML SDV ONE (09:14)
[2017-05-03] MEDS ORDERED: Propofol 200 MG/20 ML SDV ONE (09:14)
[2017-05-03] MEDS ORDERED: fentaNYL 100 MCG/2 ML SDV ONE (09:14)
[2017-05-03] MEDS ORDERED: Cyanocobalamin (Vitamin B12) 1,000 MCG/ML SDV IM ONE (09:30)
[2017-05-03] MEDS ORDERED: MVI, Adult with Vitamin K 10 ML, Thiamine 200 MG, Chromium/Copper/Mang/Selen/Zn 1 ML in... IV ONE ×4 (10:30)
[2017-05-03 10:49] VITALS: BP 97/55
--- NOTE | 2017-05-03 13:03 | OR ---
DATE OF PROCEDURE: 05/03/2017 PROCEDURE: EGD with dilation. FINDINGS: Approximately 50% narrowing of the gastrojejunal anastomosis (dilated using a 36- Turkish balloon). COMPLICATIONS: None. INDUSTRIAL MAINTENANCE TECHNICIAN: None. ANESTHESIA: MAC. INDICATIONS: A pleasant 41-year-old female, who had a Boris-en-Y. She states approximately one month ago and this was a revision. She has dysphagia. Risks, benefits, alternatives, limitations including, but not limited to, infection, bleeding, and perforation were explained, and the patient wished to proceed. PROCEDURE IN DETAIL: The patient was placed in left lateral decubitus position. The EGD scope was introduced and advanced atraumatically to the gastrojejunal anastomosis. This was noted to be approximately 50% narrowed. There was a large amount of stable debris noted retaining solid food. The balloon was dilated and subsequently removed. No abnormalities noted after removal. The esophagus was normal. The patient tolerated the procedure well. Jack Pino MD /[id number]
== END 2017-05-03 12:50 | disposition home or self-care (01) ==
LOC: JP.SDS 07:51
PROVIDERS: ATTEND Surgery
DX: K91.89 Other postprocedural complications and disorders of digestive system (principal)
CPT/HCPCS: 43245; J2250; J2704; J3010; J3411; J3420; J7120

== ENCOUNTER 2017-05-10 08:00 | Day surgery (SDC) | payer MEDICAID ==
[2017-05-10] MEDS ORDERED: Cyanocobalamin (Vitamin B12) 1,000 MCG/ML SDV IM ONE (08:45)
[2017-05-10] MEDS ORDERED: Lactated Ringers 1,000 ML IV ONE (08:45)
[2017-05-10] MEDS ORDERED: Glycopyrrolate 0.2 MG/ML 2 ML SYRINGE IVPUSH ONE (09:15)
[2017-05-10] MEDS ORDERED: fentaNYL 100 MCG/2 ML SDV ONE (09:27)
[2017-05-10] MEDS ORDERED: Midazolam 1 MG/ML 2 ML SDV ONE (09:27)
[2017-05-10] MEDS ORDERED: Propofol 200 MG/20 ML SDV ONE (09:27)
[2017-05-10] MEDS ORDERED: MVI, Adult with Vitamin K 10 ML, Thiamine 200 MG, Chromium/Copper/Mang/Selen/Zn 1 ML in... IV ONE ×4 (10:00)
[2017-05-10] MEDS ORDERED: Pantoprazole 40 MG Vial IVPUSH ONE (10:49)
[2017-05-10 12:00] VITALS: BP 116/63
[2017-05-10] MEDS ORDERED: Ondansetron 4 MG/2 ML SDV IVPUSH ONE (12:25)
--- NOTE | 2017-05-16 17:06 | OR ---
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 POSTOPERATIVE DIAGNOSIS: Mild stricture and marginal ulcer at gastrojejunostomy. OPERATIVE PROCEDURE: Upper GI endoscopy with dilation gastrojejunostomy ([id number]). ANESTHESIA: IV sedation. INDICATION FOR PROCEDURE: This is a 41-year-old female presenting with a picture suggestive of stricturing at her gastrojejunostomy, status post recent Boris-en-[id number] gastric bypass. Plan is to proceed with upper GI endoscopy with dilation as indicated. Potential risks including bleeding and perforation were discussed, and the patient wishes to proceed. DESCRIPTION OF PROCEDURE: The patient was taken to the operating room and placed in a left lateral decubitus position. IV sedation was administered, after which the upper GI endoscope was passed orally through the length of the esophagus, and into the gastric pouch. No retained food or fluid was noted. The patient was noted to have a moderate stricture of the gastrojejunostomy with the 1 cm scope being able to be just be passed through the anastomosis. There was also a marginal ulcer measuring around 1 cm, located medially beginning at the gastrojejunostomy and extending from there slightly onto the jejunum. This was covered with fibrinous exudate. No bleeding was seen. The Bard gastrointestinal balloon catheter was then centered across the anastomosis and inflated to 45-[place] size. This was held in position for 1 minute, after which the balloon catheter was deflated and withdrawn. The scope was then used to re-look at the anastomosis which was obviously widened and no complications were evident. The scope was then withdrawn and the procedure concluded. The patient was taken to the recovery room in satisfactory condition. The patient will be begun on a month long course of Protonix 40 mg IV and will be following up with Halle Donahue as arranged. Aakash Brothers MD /[id number]
== END 2017-05-10 13:03 | disposition home or self-care (01) ==
LOC: JP.SDS 08:00
PROVIDERS: ATTEND Surgery
DX: K91.89 Other postprocedural complications and disorders of digestive system (principal); K28.9 Gastrojejunal ulcer, unspecified as acute or chronic, without hemorrhage or perforation; Z98.84 Bariatric surgery status; E66.9 Obesity, unspecified; Z87.891 Personal history of nicotine dependence
CPT/HCPCS: 43245; C9113; J2250; J2405; J2704; J3010; J3411; J3420; J7120